=== PATIENT | female | born 1980 | race Caucasian/White ===

== ENCOUNTER 2022-03-28 12:07 | Emergency (ER) | payer SELFPAY ==
[~2022-03-28] VITALS: Ht 167.6 cm; Wt 80.0 kg
[2022-03-28 12:20] VITALS: BP 159/102
== END 2022-03-28 23:15 | disposition left against medical advice (07) ==
LOC: ER 12:07
DX: N93.9 Abnormal uterine and vaginal bleeding, unspecified (principal)
CPT/HCPCS: 99281; A4315